=== PATIENT | female | born 1955 | race Caucasian/White ===

== ENCOUNTER 2017-02-27 17:20 | Observation (INO) | payer MEDICARE, MEDICAID ==
[2017-02-27 16:13] LABS: BASO % 0.2 % (0-2); HCT-HEMATOCRIT 43.2 % (34.0-49.0); HGB-HEMOGLOBIN 15.8 gm/dl (12.0-15.5); IMMATURE GRANULOCYTES ABSOLUTE 0.01 tho/cmm (0-0.03); IMMATURE GRANULOCYTES PERCENT 0.2 % (0-0.3); LYMPH % 24.5 % (20-45); LYMPH ABSOLUTE COUNT 1.6 tho/cmm (0.8-4.5); MCH (MEAN CORPUSCULAR HGB) 34.3 pg (28.0-32.0); MCV (MEAN CELL VOLUME) 93.9 fl (82.0-96.0); MEAN PLATELET VOLUME 9.8 cmc (9.4-12.4); MONO % 5.9 % (0-12); MONOCYTE ABSOLUTE COUNT 0.4 tho/cmm (0.0-1.2); NEUTROPHIL ABSOLUTE COUNT 4.6 tho/cmm (1.6-8.0); NEUTROPHIL-AUTOMATED 4.6 tho/cmm (1.6-8.0); NEUTROPHILS % 69.2 % (40-80); PLATELET COUNT 159 tho/cmm (150-450); RED CELL DISTRIBUTION WIDTH 12.5 % (12.4-16.4); WHITE BLOOD COUNT 6.7 tho/cmm (4.0-10.0)
[2017-02-27 16:17] LABS: MCHC MEAN CORPUSCULAR HGB CONC 36.6 % (32.0-36.0)
[2017-02-27 16:31] LABS: ANION GAP 13 mmol/L (0-20); BLOOD UREA NITROGEN 18 mg/dl (6-24); CALCIUM 9.2 mg/dl (8.5-10.5); CARBON DIOXIDE-VENOUS 27 mmol/L (22-32); CHLORIDE 103 mmol/l (96-110); CREATININE 0.98 mg/dl (0.50-1.10); GLUCOSE 232 mg/dL (70-110); POTASSIUM 3.4 mmol/L (3.7-5.1); SODIUM 140 mmol/L (135-145); eGFR VALUE FOR BLACK 72 mL/Min
[~2017-02-27 17:20] MED LIST: ABILIFY2 MG PO; ACTOS15 MG; ACTOS30 MG; ADULT ASPIRIN81 MG PO; ADULT LOW DOSE81 MG PO; ALBUTEROL SULF8.5 GM; ALBUTEROL SULF8.5 GM IH; ALPRAZOLAM1 M2 PO; ALPRAZOLAM1 M3 PO; ALPRAZOLAM1 MG PO; ALPRAZOLAM2 MG; ALTACE; ALTACE10 MG; ALTACE10 MG PO; AMBIEN10 M1 PO; AMBIEN10 MG PO; AMOXICILLIN; AMOXICILLIN500 M; ASPIR 8181 M1 PO; ASPIRIN81 M1 PO; AUGMENTIN 875-1 EAC2 PO; AUGMENTIN 875-11 TAB PO; AVELOX400 M1 PO; BACTRIM DS TAB1 EAC2 PO; BACTRIM DS TABL1 TAB PO; BISACODYL10 MG/SUPP RC; CALCIUM + D T1 UDTAB PO; CALCIUM 600 +1 EA12 PO; CALCIUM 600 MG1 EACH PO; CELEXA40 MG; CLOBETASOL PROP15 GM TP; CLONAZEPAM0.125 MG PO; CLONAZEPAM0.5 M1 PO; CLONAZEPAM0.5 M2 PO; CLONAZEPAM1 M2 PO; CLONAZEPAM1 MG PO; COLACE100 M1 PO; COLACE100 MG PO; CYCLOBENZAPRINE10 M1 PO; DOCUSATE SODIU100 MG PO; EFFEXOR XR75 M1 PO; ENBREL50 MG/ML SQ; FLEXERIL; FLEXERIL10 MG; FLEXERIL10 MG PO; FLONASE16 GM; FLOXIN10 ML OT; GABAPENTIN600 M2 PO; GLIPIZIDE; GLIPIZIDE10 MG; GLIPIZIDE10 MG PO; GLUCERNA237 ML PO; GLUCOPHAGE500 M3 PO; H PO; HUMALIN R; HUMALOG100 U/ML SQ; HUMULIN R100 U/ML; HUMULIN R100 U/ML SQ; HYCOTUSS EXPEC480 ML PO; HYDROCODON-ACE1 EA12 PO; HYDROCODON-ACE1 EA15 PO; HYDROCODON-ACE1 EAC5 PO; HYDROCODONE; HYDROCODONE/APA1 TAB PO; IBUPROFEN600 MG PO; INHALER; LAMICTAL150 MG; LAMICTAL200 M2 PO; LAMICTAL200 MG PO; LAMICTAL25 MG; LAMOTRIGINE25 M3 PO; LANTUS SOL100 UNIT/1 SC; LANTUS SOLOSTAR3 ML SQ; LANTUS100 U/ML; LANTUS100 U/ML SC; LANTUS100 UNITS/ SC; LASIX40 M1 PO; LEVAQUIN750 MG PO; LEVOTHYROXINE112 MCG PO; LIPITOR10 MG; LIPITOR20 MG; LYRICA100 MG; LYRICA25 MG; MINIPRESS1 MG PO; MIRALAX17 GM PO; NEURONTIN100 MG; NEURONTIN300 M1 PO; NEURONTIN300 MG PO; NEURONTIN600 MG PO; NORCO 10/325 TA1 TAB PO; NORCO 5/325 TAB1 TAB PO; NORCO 7.5/325 T1 TAB PO; NORFLEX100 MG; NOVOLOG FL100 UNIT/1 SQ; NOVOLOG FL100 UNIT/2 SC; NOVOLOG FL100 UNIT/2 SQ; NOVOLOG100 U/M SQ; NOVOLOG100 UNIT/2 SQ; NOVOLOG100 UNITS/ SC; OMEPRAZOLE20 M1 PO; OMEPRAZOLE20 M3 PO; ONDANSETRON ODT8 M1 PO; OXYCODONE-APAP; PAMELOR50 MG; PERCOCET 5/3251 TAB PO; PHENERGAN; POLYETHYLENE G255 GM PO; PRILOSEC40 MG PO; PROAIR HFA 90MCG INH; QUETIAPINE FUM300 MG PO; QUETIAPINE FUM400 M1 PO; RAMIPRIL10 MG PO; SEROQUEL100 MG PO; SEROQUEL200 MG PO; SEROQUEL300 M1 PO; SEROQUEL300 MG; SEROQUEL300 MG PO; SERTRALINE HCL100 M1 PO; SERTRALINE HCL100 MG PO; SERTRALINE HCL50 M4 PO; SIMVASTATIN20 M1 PO; SIMVASTATIN20 MG PO; SSD20 GM TOP; SYNTHROID112 MC1 PO; SYNTHROID112 MCG PO; TAMIFLU75 MG; THERA GESIC CRE TP; TOPAMAX25 M1 PO; TOPAMAX25 M2 PO; TOPAMAX50 M3 PO; TRAZODONE HCL100 MG PO; TRAZODONE HCL150 M1; TRAZODONE HCL50 M1 PO; TRAZODONE100 MG; TRAZODONE100 MG PO; TRIAMCINOLONE A15 G2 EXT; TRIAMTERENE; TRIAMTERENE-HC1 EAC3 PO; TRICOR; TRICOR145 M1; TRILEPTAL150 MG; ULTRAM50 MG PO; ULTRAVATE50 GM TOP; VICODIN 5/500 T1 TAB PO; VITAMIN B1250 MCG PO; VITAMIN D250000 UNIT PO; WELLBUTRIN XL150 MG; XANAX1 MG; XANAX2 MG; ZANAFLEX2 M; ZOCOR20 MG PO; ZOFRAN; ZOFRAN ODT4 MG/UDTAB PO; ZOFRAN8 MG; ZOLOFT; ZOLOFT100 M1 PO; ZOLOFT100 MG; [UNRECOGNIZED DRUG - OTHER]
[2017-02-28 02:22] LABS: BASO % 0.1 % (0-2); HCT-HEMATOCRIT 41.9 % (34.0-49.0); IMMATURE GRANULOCYTES ABSOLUTE 0.01 tho/cmm (0-0.03); IMMATURE GRANULOCYTES PERCENT 0.1 % (0-0.3); LYMPH % 43.4 % (20-45); LYMPH ABSOLUTE COUNT 3.1 tho/cmm (0.8-4.5); MCH (MEAN CORPUSCULAR HGB) 33.8 pg (28.0-32.0); MCHC MEAN CORPUSCULAR HGB CONC 35.8 % (32.0-36.0); MCV (MEAN CELL VOLUME) 94.4 fl (82.0-96.0); MEAN PLATELET VOLUME 9.8 cmc (9.4-12.4); MONO % 8.3 % (0-12); MONOCYTE ABSOLUTE COUNT 0.6 tho/cmm (0.0-1.2); NEUTROPHIL ABSOLUTE COUNT 3.4 tho/cmm (1.6-8.0); NEUTROPHIL-AUTOMATED 3.4 tho/cmm (1.6-8.0); NEUTROPHILS % 48.1 % (40-80); PLATELET COUNT 165 tho/cmm (150-450); RED BLOOD COUNT 4.44 mil/cmm (4.00-5.20); RED CELL DISTRIBUTION WIDTH 12.5 % (12.4-16.4); WHITE BLOOD COUNT 7.1 tho/cmm (4.0-10.0)
[2017-02-28] MEDS ORDERED: POTASSIUM CHLO10 ME2 PO (13:26)
[2017-04-20] MEDS ORDERED: BETAMETHASONE D15 G6 APL (18:59)
== END 2017-02-28 14:15 ==
LOC: EDMED 17:20 → EMR2 18:52 → CAR1 19:55
PROVIDERS: Emergency Medicine; Nurse Practitioner Family; ADMIT Internal Medicine Cardiovascular Disease
DX: R07.89 Other chest pain (principal); I10 Essential (primary) hypertension; E78.5 Hyperlipidemia, unspecified; E11.40 Type 2 diabetes mellitus with diabetic neuropathy, unspecified; G40.909 Epilepsy, unspecified, not intractable, without status epilepticus; E03.9 Hypothyroidism, unspecified; F32.9 Major depressive disorder, single episode, unspecified; M79.7 Fibromyalgia; F43.10 Post-traumatic stress disorder, unspecified; M06.9 Rheumatoid arthritis, unspecified; L40.50 Arthropathic psoriasis, unspecified; I35.8 Other nonrheumatic aortic valve disorders; J45.990 Exercise induced bronchospasm; Z79.82 Long term (current) use of aspirin; Z79.899 Other long term (current) drug therapy; Z88.8 Allergy status to other drugs, medicaments and biological substances; Z90.49 Acquired absence of other specified parts of digestive tract; Z98.890 Other specified postprocedural states
CPT/HCPCS: A9500; G0378; J1815; J2060; J2785